=== PATIENT | female | born 1990 | race Caucasian/White ===

== ENCOUNTER 2018-01-25 11:28 | Outpatient (CLI) | payer OTHER ==
[~2018-01-25] VITALS: Ht 165.1 cm; Wt 96.8 kg
[2018-01-25] MEDS ORDERED: PREN1TAB60 PO (15:44)
== END 2018-01-25 16:13 | disposition home or self-care (01) ==
LOC: LDOP 11:28
PROVIDERS: ATTEND Obstetrics & Gynecology
DX: O42.90 Premature rupture of membranes, unspecified as to length of time between rupture and onset of labor, unspecified weeks of gestation (principal); E11.9 Type 2 diabetes mellitus without complications; F17.200 Nicotine dependence, unspecified, uncomplicated; Z3A.00 Weeks of gestation of pregnancy not specified
CPT/HCPCS: 59025; 76815; 99201; G0463

== ENCOUNTER 2018-01-26 00:31 | Inpatient (IN) | payer OTHER ==
[~2018-01-26] VITALS: Ht 165.1 cm; Wt 96.8 kg
[~2018-01-26 00:31] MED LIST: PREN1TAB60 PO
[2018-01-26 01:03] VITALS: BP 108/71
[2018-01-26] MEDS ORDERED: OXYTOCIN 30U/ 0.9% NaCL 500ML 500 ML IV ONE (03:22)
[2018-01-26] MEDS ORDERED: D5%-LACTATED RINGERS 1,000 ML IV SCH (03:22)
[2018-01-26] MEDS ORDERED: ONDANSETRON 2MG/ML, 2ML IVPush PRN (03:30)
[2018-01-26] MEDS ORDERED: FENTANYL PF 100 MCG/2ML IVPush PRN (03:30)
[2018-01-26] MEDS ORDERED: FENTANYL PF 100 MCG/2ML IV PRN (03:30)
[2018-01-26] MEDS ORDERED: TERBUTALINE 1 MG/ML, 1ML IVPush PRN (03:30)
[2018-01-26] MEDS ORDERED: CALCIUM CARBONATE 500 MG TAB.CHEW PO PRN (03:30)
[2018-01-26] MEDS ORDERED: SODIUM CITRATE/CITRIC ACID 30 ML UDC PO PRN (03:30)
[2018-01-26] MEDS ORDERED: LIDOCAINE-MPF 1%, 5ML ONE (03:31)
[2018-01-26] MEDS ORDERED: MISOPROSTOL 200 MCG TABLET ONE (03:31)
[2018-01-26] MEDS ORDERED: NEWBORN KIT ONE (03:31)
[2018-01-26] MEDS ORDERED: OXYTOCIN 30U/ 0.9% NaCL 500ML 500 ML ONE (03:31)
[2018-01-26 03:44] LABS: BASOPHILS # (AUTO) 0.05 x10^3/uL (0-0.1); BASOPHILS % (AUTO) 0 % (0-1); EOSINOPHILS # (AUTO) 0.02 x10^3/uL (0-0.4); EOSINOPHILS % (AUTO) 0 % (1-7); LYMPHOCYTES # (AUTO) 1.31 x10^3/uL (1-3.4); LYMPHOCYTES % (AUTO) 8 % (22-44); MD NO; MEAN CORPUSCULAR HEMOGLOBIN 32.1 pg (27.0-34.8); MEAN CORPUSCULAR HGB CONC 33.9 g/dL (32.4-35.8); MEAN CORPUSCULAR VOLUME 94.8 fL (80-100); MEAN PLATELET VOLUME 6.5 fL (7.4-10.4); MONOCYTES # (AUTO) 0.44 x10^3/uL (0.2-0.8); MONOCYTES % (AUTO) 3 % (2-9); NEUTROPHILS # (AUTO) 14.08 x10^3/uL (1.8-6.8); NEUTROPHILS % (AUTO) 89 % (42-75); PLATELET COUNT 189 x10^3/uL (130-400); RED BLOOD COUNT 4.23 x10^6/uL (3.82-5.3); RED CELL DISTRIBUTION WIDTH 14.5 % (9.6-15.2)
[2018-01-26] MEDS ORDERED: FENTANYL PF 100 MCG/2ML ONE ×2 (04:31→05:12)
[2018-01-26] MEDS: LACTATED RINGERS 1,000 ML IV SCH ×5 (04:33→14:20)
[2018-01-26] MEDS ORDERED: LIDOCAINE/PF 1.5%-EPI 1:200K, 30ML ONE (05:06)
[2018-01-26] MEDS ORDERED: FENTANYL/BUPIV./NS/PF 250 ML EPIDCONT ONE (05:12)
[2018-01-26] MEDS ORDERED: BUPIVACAINE 0.25% ONE (05:12)
[2018-01-26] MEDS ORDERED: EPHEDRINE 50 MG/ML, 1ML IVPush ONE ×2 (06:10→06:30)
[2018-01-26] MEDS ORDERED: EPHEDRINE 50 MG/ML, 1ML ONE (06:27)
[2018-01-26] MEDS ORDERED: FENTANYL/BUPIV./NS/PF 250 ML EPIDCONT SCH (06:29)
[2018-01-26] MEDS ORDERED: LACTATED RINGERS 1,000 ML IVBOLUS PRN (06:30)
[2018-01-26] MEDS ORDERED: OXYTOCIN 30U/ 0.9% NaCL 500ML 500 ML IV PRN (10:24)
[2018-01-26] MEDS: OXYTOCIN 30U/ 0.9% NaCL 500ML 500 ML IV SCH (17:14)
[2018-01-26] MEDS ORDERED: METOCLOPRAMIDE 5 MG/ML, 2ML IV PRN (17:30)
[2018-01-26] MEDS ORDERED: BISACODYL 10 MG SUPP PR PRN (17:30)
[2018-01-26] MEDS ORDERED: DOCUSATE 100 MG CAPSULE PO PRN (17:30)
[2018-01-26] MEDS ORDERED: OXYcodone/APAP 5/325MG TABLET PO PRN (17:30)
[2018-01-26] MEDS ORDERED: CARBOPROST TROMETHAMINE 250 MCG/ML, 1ML IM PRN (17:30)
[2018-01-26] MEDS ORDERED: ONDANSETRON 2MG/ML, 2ML IV PRN (17:30)
[2018-01-26] MEDS ORDERED: ACETAMINOPHEN 325 MG TABLET PO PRN ×2 (17:30)
[2018-01-26] MEDS ORDERED: DIPH,PERTUSS(ACELL),TET VAC/PF NC IM-VACC PRN (17:30)
[2018-01-26] MEDS ORDERED: METHYLERGONOVINE 0.2 MG/ML IM PRN (17:30)
[2018-01-26] MEDS ORDERED: GLYCERIN ADULT SUPP PR PRN (17:30)
[2018-01-26] MEDS ORDERED: MISOPROSTOL 200 MCG TABLET PR PRN (17:30)
[2018-01-26] MEDS ORDERED: IBUPROFEN 600 MG TABLET ONE (18:37)
[2018-01-26] MEDS: IBUPROFEN 600 MG TABLET PO PRN (18:38)
[2018-01-26 19:15] VITALS: BP 97/63
[2018-01-26 20:30] VITALS: BP 104/65
[2018-01-27 00:18] VITALS: BP 110/72
[2018-01-27 00:50] LABS: MEAN CORPUSCULAR HEMOGLOBIN 33.2 pg (27.0-34.8); MEAN CORPUSCULAR VOLUME 97.6 fL (80-100); MEAN PLATELET VOLUME 6.7 fL (7.4-10.4); PLATELET COUNT 188 x10^3/uL (130-400); RED BLOOD COUNT 3.54 x10^6/uL (3.82-5.3); RED CELL DISTRIBUTION WIDTH 14.4 % (9.6-15.2)
[2018-01-27 01:03] LABS: BASOPHILS # (AUTO) 0.07 x10^3/uL (0-0.1); BASOPHILS % (AUTO) 0 % (0-1); EOSINOPHILS # (AUTO) 0.09 x10^3/uL (0-0.4); EOSINOPHILS % (AUTO) 1 % (1-7); LYMPHOCYTES # (AUTO) 1.45 x10^3/uL (1-3.4); LYMPHOCYTES % (AUTO) 8 % (22-44); MD SCAN; MONOCYTES # (AUTO) 0.65 x10^3/uL (0.2-0.8); MONOCYTES % (AUTO) 4 % (2-9); NEUTROPHILS # (AUTO) 16.51 x10^3/uL (1.8-6.8); NEUTROPHILS % (AUTO) 88 % (42-75)
[2018-01-27] MEDS: OXYTOCIN 30U/ 0.9% NaCL 500ML 500 ML IV SCH ×2 (03:14→13:14)
[2018-01-27 04:07] VITALS: BP 79/48
[2018-01-27] MEDS: IBUPROFEN 600 MG TABLET PO PRN ×2 (05:55→13:56)
[2018-01-27 07:05] VITALS: BP 93/57
[2018-01-27] MEDS: OXYcodone/APAP 5/325MG TABLET PO PRN ×2 (07:57→13:56)
[2018-01-27] MEDS ORDERED: PRENATAL VIT/IRON/FA 1 EACH TABLET PO SCH (09:00)
[2018-01-27 11:30] VITALS: BP 102/65
[2018-01-27] MEDS ORDERED: IBUP-1222 PO (15:27)
[2018-01-27] MEDS ORDERED: OXYC-302 PO (15:27)
== END 2018-01-27 18:00 | disposition home or self-care (01) | DRG 775 ==
LOC: LDOP 00:31 → LDIP 03:34 → 2NW 19:03
PROVIDERS: ADMIT Obstetrics & Gynecology; ATTEND Obstetrics & Gynecology
PROC: 10E0XZZ Delivery of Products of Conception, External Approach (ICD-10-PCS; principal; 2018-01-26)
PROC: 0HQ9XZZ Repair Perineum Skin, External Approach (ICD-10-PCS; 2018-01-26)
PROC: 3E0R3BZ Introduction of Anesthetic Agent into Spinal Canal, Percutaneous Approach (ICD-10-PCS; 2018-01-26)
PROC: 00HU33Z Insertion of Infusion Device into Spinal Canal, Percutaneous Approach (ICD-10-PCS; 2018-01-26)
DX: O70.0 First degree perineal laceration during delivery (principal); Z37.0 Single live birth; Z3A.40 40 weeks gestation of pregnancy
CPT/HCPCS: 36415; 85025; 86850; 86900; J3010; J3490; J2590; J7120